=== PATIENT | female | born 2000 | race Two or more races ===

== ENCOUNTER 2022-11-01 10:11 | Emergency (ER) | payer MEDICAID ==
[~2022-11-01] VITALS: Ht 167.6 cm; Wt 61.3 kg
[2022-11-01 10:20] VITALS: BP 115/65
[2022-11-01] MEDS ORDERED: TOB03OS OP (11:51)
[2022-11-01] MEDS ORDERED: TETRACAINE HCL 0.5% OPTH(EYE) SOLN 4ML LEFTEYE ONE (12:00)
== END 2022-11-01 12:07 | disposition home or self-care (01) ==
LOC: ER 10:11
DX: S05.02XA Injury of conjunctiva and corneal abrasion without foreign body, left eye, initial encounter (principal); W20.8XXA Other cause of strike by thrown, projected or falling object, initial encounter; Y93.89 Activity, other specified; Y92.89 Other specified places as the place of occurrence of the external cause; Y99.8 Other external cause status